=== PATIENT | male | born 1955 | race Hispanic/Latino ===

== ENCOUNTER 2020-10-28 11:50 | Emergency (ER) | payer SELFPAY ==
[~2020-10-28] VITALS: Ht 172.7 cm; Wt 82.6 kg
[2020-10-28] MEDS ORDERED: TETANUS/DIPHTHERIA TOX ADULT 0.5 ML SYR IM ONE (12:45)
[2020-10-28] MEDS ORDERED: DOXYCYCLINE HY100 MG PO (14:23)
[2020-10-28 15:21] VITALS: BP 137/62
== END 2020-10-28 15:22 | disposition home or self-care (01) ==
LOC: ER 12:45
DX: M79.675 Pain in left toe(s) (principal); L03.032 Cellulitis of left toe; L84 Corns and callosities; I10 Essential (primary) hypertension; F17.210 Nicotine dependence, cigarettes, uncomplicated
CPT/HCPCS: 90714; 99282